=== PATIENT | female | born 1990 | race Caucasian/White ===

== ENCOUNTER 2017-09-28 00:33 | Emergency (ER) | payer OTHER ==
[~2017-09-28] VITALS: Ht 172.7 cm; Wt 101.6 kg
[2017-09-28 00:45] VITALS: BP 126/80; Ht 172.7 cm; Wt 101.6 kg
== END 2017-09-28 02:26 | disposition home or self-care (01) ==
LOC: ED 00:33
DX: O36.8130 Decreased fetal movements, third trimester, not applicable or unspecified (principal); Z3A.30 30 weeks gestation of pregnancy

== ENCOUNTER 2018-09-25 21:22 | Emergency (ER) | payer OTHER ==
[~2018-09-25] VITALS: Ht 172.7 cm; Wt 104.3 kg
[2018-09-25 21:28] VITALS: BP 127/88; Ht 172.7 cm; Wt 104.3 kg
== END 2018-09-26 00:26 | disposition home or self-care (01) ==
LOC: ED 21:22
DX: S61.412A Laceration without foreign body of left hand, initial encounter (principal); W26.0XXA Contact with knife, initial encounter; Y93.89 Activity, other specified; Y92.89 Other specified places as the place of occurrence of the external cause; Y99.8 Other external cause status
CPT/HCPCS: 90715; J2001